=== PATIENT | female | born 1965 ===

== ENCOUNTER 2024-09-30 11:38 | Inpatient (IN) | payer MEDICAID ==
[~2024-09-30] VITALS: Ht 154.9 cm; Wt 49.6 kg
[2024-09-30 12:30] LABS: BASOPHILS % (AUTO) 0.6 % (0.0-2.0); EOSINOPHILS % (AUTO) 2.5 % (1.0-6.0); HEMOGLOBIN 12.2 g/dL (12.0-16.0); LYMPHOCYTES # (AUTO) 2.8 K/uL (1.0-4.8); LYMPHOCYTES % (AUTO) 41.5 % (22.0-44.0); MEAN CORPUSCULAR HEMOGLOBIN 27.7 pg (26.0-34.0); MEAN CORPUSCULAR HGB CONC 32.1 G/dL (31.0-37.0); MEAN CORPUSCULAR VOLUME 86 fL (80-100); MONOCYTES # (AUTO) 0.4 K/uL (0.1-1.0); NEUTROPHILS # (AUTO) 3.3 K/uL (1.8-7.7); NEUTROPHILS % (AUTO) 49.4 % (40.0-70.0); PLATELET COUNT (AUTO) 372 K/uL (150-450); RED CELL DISTRIBUTION WIDTH 15.6 % (11.5-14.5); WHITE BLOOD COUNT (AUTO) 6.6 K/uL (4.5-11.0)
[2024-09-30 12:40] LABS: ANION GAP 11 mmol/L (8-16); CALCIUM, TOTAL 8.9 mg/dL (8.8-10.5); CARBON DIOXIDE 25 mmol/L (22-29); CHLORIDE 105 mmol/L (98-107); CREATININE 0.47 mg/dL (0.60-1.30); GLOMERULAR FILTR. RATE CALC > 60 mL/min (>60); GLUCOSE,RANDOM 104 mg/dL (70-110); POTASSIUM 3.8 mmol/L (3.5-5.1); SODIUM SERUM 141 mmol/L (136-145); UREA NITROGEN, BLOOD 19 mg/dL (7-18)
[2024-09-30 12:49] LABS: ALCOHOL, BLOOD (SERUM) < 3 mg/dL (0-10)
[2024-09-30 12:59] LABS: COVID AG,FIA SOURCE NASAL SWAB
[2024-09-30 13:04] VITALS: O2SAT 99
[2024-09-30 13:15] LABS: PH,URINE DRUG SCREEN 6.5 (5.0-8.0)
[2024-09-30 13:22] LABS: AMPHET/METH SCREEN,URINE NEGATIVE (NEGATIVE); BARBITURATE SCREEN, URINE NEGATIVE (NEGATIVE); BENZODIAZEPINES SCREEN,URINE NEGATIVE (NEGATIVE); CANNABINOID SCREEN,URINE NEGATIVE (NEGATIVE); COCAINE SCREEN,URINE NEGATIVE (NEGATIVE); METHADONE SCREEN, URINE NEGATIVE (NEGATIVE); OPIATE SCREEN,URINE NEGATIVE (NEGATIVE); PHENCYCLIDINE SCREEN,URINE NEGATIVE (NEGATIVE)
[2024-09-30 13:23] LABS: ALCOHOL, URINE DRUG SCREEN NEGATIVE (NEGATIVE)
[2024-09-30] MEDS: LORazepam 1 MG TABLET PO ONE (13:40)
[2024-09-30] MEDS: OLANZapine 5 MG RAPDIS TABLET PO ONE (13:40)
[2024-09-30 13:47] LABS: SARS-COV2 (COVID) ANTIGEN,FIA Negative (Negative)
[2024-09-30] MEDS ORDERED: OLANZapine 5 MG RAPDIS TABLET PO PRN ×2 (14:15→23:15)
[2024-09-30] MEDS ORDERED: ZOLPIDEM TARTRATE 10 MG TABLET PO PRN (14:15)
[2024-09-30] MEDS ORDERED: LORazepam 2 MG TABLET PO PRN (14:15)
[2024-09-30 16:36] VITALS: BP 127/72; PULSE 73; RESP 18; TEMP 97.3; O2SAT 100
[2024-09-30] MEDS ORDERED: DEXTROSE 50%-WATER 25 GM/50 ML SYRINGE IVP PRN (20:30)
[2024-09-30 21:34] VITALS: BP 106/62; PULSE 73; RESP 18; TEMP 98.6; O2SAT 99
[2024-09-30 21:35] LABS: GLUCOMETER DEV NAME(LOC) 3EX.2; GLUCOSE,POINT OF CARE 131 MG/DL (70-110)
[2024-09-30] MEDS ORDERED: GuaiFENesin/D-METHORPHAN [SUGAR-FREE] 200-20MG/10 ML SYRUP UDCUP PO PRN (23:15)
[2024-09-30] MEDS ORDERED: LOPERAMIDE HCL 2 MG CAPSULE PO PRN (23:15)
[2024-09-30] MEDS ORDERED: MAG HYDROX/ALUMINUM HYD/SIMETH ES 30 ML SUSPENSION UDCUP PO PRN (23:15)
[2024-09-30] MEDS ORDERED: ACETAMINOPHEN 325 MG TABLET PO PRN (23:15)
[2024-09-30] MEDS ORDERED: HydrOXYzine PAMOATE 50 MG CAPSULE PO PRN (23:15)
[2024-09-30] MEDS ORDERED: MAGNESIUM HYDROXIDE SUSPENSION 30 ML UDCUP PO PRN (23:15)
[2024-09-30] MEDS ORDERED: PROMETHAZINE HCL 25 MG TABLET PO PRN (23:15)
[2024-09-30] MEDS ORDERED: TUBERCULIN, PURIFIED PROTEIN DERIVATIVE 5 TU/0.1 ML SYRINGE ID ONE (23:15)
[2024-10-01 06:30] LABS: GLUCOMETER DEV NAME(LOC) 3EX.2; GLUCOSE,POINT OF CARE 116 MG/DL (70-110)
[2024-10-01 07:40] LABS: HEMOGLOBIN A1C 6.2 % (3.8-5.6)
[2024-10-01 08:07] LABS: CHOL/HDL RATIO 2.2 (3.9-5.7); FREE T4 (FREE THYROXINE) 0.96 ng/dL (0.76-1.46); THYROID STIMULATING HORMONE 1.83 uIU/mL (0.36-3.74)
[2024-10-01 09:15] VITALS: BP 96/62; PULSE 81; RESP 17; TEMP 97.7; O2SAT 100
[2024-10-01] MEDS: MULTIVITAMINS WITH MINERALS, THERAPEUTIC TABLET PO SCH (10:54)
[2024-10-01] MEDS: DIVALPROEX SODIUM 500 MG ER TABLET PO SCH (10:54)
[2024-10-01] MEDS: THIAMINE 100 MG TABLET PO SCH (10:56)
[2024-10-01] MEDS: FOLIC ACID 1 MG TABLET PO SCH (10:56)
[2024-10-01] MEDS: NALTREXONE HCL 50 MG TABLET PO SCH (10:56)
[2024-10-01 12:16] LABS: GLUCOMETER DEV NAME(LOC) 3EX.2; GLUCOSE,POINT OF CARE 119 MG/DL (70-110)
[2024-10-01 17:51] LABS: GLUCOMETER DEV NAME(LOC) 3EX.2; GLUCOSE,POINT OF CARE 160 MG/DL (70-110)
[2024-10-01] MEDS: INSULIN LISPRO 100 UNITS/ML SQ PRN (18:11)
[2024-10-01 20:25] LABS: GLUCOMETER DEV NAME(LOC) 3EX.2; GLUCOSE,POINT OF CARE 106 MG/DL (70-110)
[2024-10-01] MEDS: OLANZapine 5 MG RAPDIS TABLET PO SCH (20:33)
[2024-10-01] MEDS: MELATONIN 5 MG TABLET PO SCH (20:33)
[2024-10-01 21:59] VITALS: BP 91/58; PULSE 78; RESP 18; TEMP 97.2; O2SAT 98
[2024-10-02 05:55] LABS: GLUCOMETER DEV NAME(LOC) 3E.I 2; GLUCOSE,POINT OF CARE 107 MG/DL (70-110)
[2024-10-02 09:43] VITALS: BP 91/63; PULSE 69; RESP 18; TEMP 97.6; O2SAT 98
[2024-10-02] MEDS ORDERED: DULO20CA71 PO (11:41)
[2024-10-02] MEDS ORDERED: OLAN5TAB94 PO (11:41)
[2024-10-02] MEDS ORDERED: MELA5TAB40 PO (11:41)
[2024-10-02 11:51] LABS: GLUCOMETER DEV NAME(LOC) 3E.I 2; GLUCOSE,POINT OF CARE 89 MG/DL (70-110)
[2024-10-02] MEDS ORDERED: OLANZapine 10 MG RAPDIS TABLET PO SCH (21:00)
[2024-10-03] MEDS ORDERED: DULoxetine HCL 20 MG CAPSULE PO SCH (09:00)
== END 2024-10-02 16:10 | disposition home or self-care (01) | DRG 750 ==
LOC: EMS 11:38 → 3EI 14:58
PROVIDERS: ADMIT Psychiatry & Neurology Psychiatry; ATTEND Psychiatry & Neurology Psychiatry
PROC: GZHZZZZ Group Psychotherapy (ICD-10-PCS; principal; 2024-10-01)
PROC: GZ58ZZZ Individual Psychotherapy, Cognitive-Behavioral (ICD-10-PCS; 2024-10-01)
PROC: GZ56ZZZ Individual Psychotherapy, Supportive (ICD-10-PCS; 2024-10-01)
DX: F25.9 Schizoaffective disorder, unspecified (principal); E11.9 Type 2 diabetes mellitus without complications; G89.29 Other chronic pain; Z20.822 Contact with and (suspected) exposure to COVID-19; K59.00 Constipation, unspecified; K21.9 Gastro-esophageal reflux disease without esophagitis; F41.9 Anxiety disorder, unspecified; Z88.6 Allergy status to analgesic agent; Z90.49 Acquired absence of other specified parts of digestive tract; Z91.199 Patient's noncompliance with other medical treatment and regimen due to unspecified reason; M19.90 Unspecified osteoarthritis, unspecified site; Z55.9 Problems related to education and literacy, unspecified; Z59.9 Problem related to housing and economic circumstances, unspecified; Z63.9 Problem related to primary support group, unspecified; Z65.3 Problems related to other legal circumstances; Z87.81 Personal history of (healed) traumatic fracture
CPT/HCPCS: 80048; 80061; 80307; 82962; 83036; 84439; 84443; 85025; 86592; 97163; 99285; G0480